=== PATIENT | male | born 1985 | race Caucasian/White ===

== ENCOUNTER 2024-06-12 16:30 | Emergency (ER) | payer SELFPAY ==
[2024-06-12 16:31] VITALS: BP 126/91; PULSE 107; RESP 22; TEMP 36.9; O2SAT 96
--- NOTE | 2024-06-12 17:00 | ED_ITS ---
<Statement entered by Dinesh Talavera MD - 06/12/24 22:56> I was consulted by the HARJINDER, and we discussed the complexity of the problems being addressed. I approved the treatment and management plan for this patient's care in the emergency department, thus performing a substantive portion of the medical decision making. Dinesh Talavera MD, EDEN, FACEP Discharge Plan Disposition Patient Disposition: Home, Self-Care Condition: Good Prescriptions Prescriptions: New ondansetron 4 mg tablet,disintegrating 4 mg PO Q8H PRN (Reason: nausea and vomiting) 3 Days Qty: 9 0RF cefdinir 300 mg capsule 300 mg PO Q12H 10 Days Qty: 20 0RF Referrals Follow up/Referrals: Casper Lobo II, MD [Staff Physician] - See instructions Provider,MD Jonathan [Primary Care Provider] - See instructions Clinical Impressions Clinical Impression: Abdominal pain, Acute UTI Instructions Patient Instructions: DI for Urinary Tract Infection (UTI), DI for Acute Abdominal Pain Print Language Print Language: Ivorian Discharge ED Provider: Dinesh Talavera General Adult HPI General Chief complaint: Abdominal Pain Stated complaint: Abdominal Pain Time Seen by Provider: 06/12/24 16:47 Mode of Arrival: Wheelchair Source of Information: Patient Limitations: No Limitations Description of Symptoms (Recalled from ER Triage Doc. by RN): r side pain. x4 days. has worsened today. History of Present Illness HPI narrative: Patient presents complaining of right sided abdominal pain. Initially he reports that the pain has been going on for 4 days however subsequently states that it is actually been present for 4 years. He reports a temperature of 100.1. He reports his urine has been dark. He does report nausea, vomiting, constipation. complaint: abdominal pain Onset (ago): hour(s) Location: abdomen Radiation: non-radiation Severity: moderate Quality: stabbing Consistency: intermittent Relieving factors: none Exacerbating factors: none Associated symptoms: negative fever/chills Related Data Previous Rx's ?Medication ?Instructions ?Recorded cefdinir 300 mg capsule 300 mg PO Q12H 10 days #20 caps 06/12/24 ondansetron 4 mg disintegrating 4 mg PO Q8H PRN nausea and 06/12/24 tablet vomiting 3 days #9 tabs Allergies Allergy/AdvReac Type Severity Reaction Status Date / Time No Known Allergies Allergy Verified 06/12/24 16:44 [facility] Disclaimer: The information contained in this section may have been updated after the patient was seen, as this information can be updated by other users. Social History Smoking Status: Current every day smoker alcohol intake: never current occupational status: other Travel in the last 8 weeks: None ROS Obtained: Yes Systems reviewed as appropriate & no additional complaints except as documented Physical Exam General General appearance: alert and in no apparent distress Head Head exam: atraumatic and normocephalic Eye Eye exam: Present normal appearance and EOMI Chest Chest inspection: Present symmetric chest wall rise Respiratory Respiratory exam: Present normal lung sounds bilaterally; Absent wheezes or stridor Cardiovascular Cardiovascular exam: Present regular rate and normal rhythm; Absent systolic murmur Abdominal Exam Abdominal exam: Present soft; Absent distention, tenderness or guarding Extremities Exam Extremities exam: Present full ROM Neurological Exam Neurological exam: Present alert and oriented X3 Psychiatric Psychiatric exam: Present normal affect and normal mood Skin Skin exam: Present warm, dry and intact Medical Decision Making Medical Records Screening: Per USPSTF and CDC recommendations, given the prevalence of disease in our region, it is our hospital?s policy to screen for HIV and viral Hepatitis for all patients aged 18 and over and those with ongoing risk factors. Jf Inquiry Pt receiving controlled substance: No Vital Signs: 06/12/24 16:31 Temperature 98.4 F Temperature Source Oral Pulse Rate [Right] 107 H Respiratory Rate 22 Blood Pressure [Right Arm] 126/91 H Blood Pressure Mean [Right Arm] 102 02 Sat by Pulse Oximetry 96 Oxygen Delivery Method Room Air Lab Data Lab Results 06/12/24 16:48: WBC 15.0 H, RBC 4.42 L, Hgb 13.7 L, Hct 39.6 L, MCV 89.6, MCH 31.0, MCHC 34.6, RDW 12.2, Plt Count 200, MPV 10.7 H, Neut % (Auto) 84.7 H, L ymph % (Auto) 8.3 L, [place] % (Auto) 6.3, Eos % (Auto) 0.0 L, Baso % (Auto) 0.3, N eut # (Auto) 12.7 H, Lymph # (Auto) 1.3, [place] # (Auto) 1.0, Eos # (Auto) 0.0, Baso # (Auto) 0.0, Total Counted 100, Neutrophils % (Manual) 87 H, Lymphocytes % (Manual) 7 L, Monocytes % (Manual) 6, Platelet Estimate Normal, RBC Morphology Normal, Sodium 133 L, Potassium 4.1, Chloride 94 L, Carbon Dioxide 21 L, Anion Gap 22.1 H, BUN 19, Creatinine 1.30 H, Estimated Creat Clear 73, Estimated GFR 62, Est GFR ( Amer) 75, Glucose 103 H, Lactate 4.1 H, Calcium 9.7, Total Bilirubin 2.0 H, AST 32, ALT 33, Alkaline Phosphatase 74, Total Creatine Kinase 121, Total Protein 7.6, Albumin 5.0, Globulin 2.6, Albumin/Globulin Ratio 1.9 H, Lipase 41 06/12/24 16:55: Urine Color Yellow, Urine Appearance Clear, Urine pH 6.0, Ur Specific [place] >= 1.030, Urine Protein 1+ A, Urine Glucose (UA) Negative, Urine Ketones 2+, Urine Blood 1+ A, Urine Nitrate Negative, Urine Bilirubin 2+ A , Urine Urobilinogen 1.0, Ur Leukocyte Esterase 1+ A, Urine RBC Occasional, Urine WBC 5-10, Ur Squamous Epith Cells Occasional, Urine Bacteria Trace 06/12/24 16:48 06/12/24 16:48 Orders (Tests/Meds): ED MEDICATIONS Generic Name Dose Route Start Last Admin Trade Name Freq PRN Reason Stop Dose Admin Sodium Chloride 10 ml 06/12/24 17:06 Sodium Chloride 0.9% 10ml Flush Syringe IV 07/12/24 17:05 NEEDED PRN Maintain IV Site Sodium Chloride 10 ml 06/12/24 17:18 06/12/24 17:19 Sodium Chloride 0.9% 10ml Syr (Rad Only) IV 07/12/24 17:17 10 ml NEEDED PRN Administration Maintain IV Site Discontinued Medications Generic Name Dose Route Start Last Admin Trade Name Freq PRN Reason Stop Dose Admin Sodium Chloride 500 mls @ 999 mls/hr 06/12/24 17:06 06/12/24 17:16 Sod Chlor 0.9% 1000ml Bag IV 06/12/24 17:36 999 mls/hr .Q31M ONE Administration Iopamidol 75 ml 06/12/24 17:14 06/12/24 17:15 Iopamidol-370 (76%);100ml Bottle IV 06/12/24 17:15 75 ml ONCE ONE Administration Iopamidol 75 ml 06/12/24 17:18 06/12/24 17:19 Iopamidol-370 (76%);100ml Bottle IV 06/12/24 17:19 75 ml ONCE ONE Administration Morphine Sulfate 4 mg 06/12/24 17:25 06/12/24 17:30 Morphine 4mg/Ml Syringe IV 06/12/24 17:26 4 mg ONCE ONE Administration Ondansetron HCl 4 mg 06/12/24 17:06 06/12/24 17:16 Ondansetron 4mg/2ml Vial IV 06/12/24 17:07 4 mg ONCE ONE Administration Sodium Chloride 10 ml 06/12/24 17:14 06/12/24 17:15 Sodium Chloride 0.9% 10ml Syr (Rad Only) IV 06/12/24 17:15 10 ml ONCE ONE Administration ORDERS Category Date Time Status CT abdomen pelvis w con Stat Cat Scan 06/12/24 17:06 Completed CK [Creatine Kinase] Stat Lab 06/12/24 16:48 Completed Complete Blood Count Auto Diff Stat Lab 06/12/24 16:48 Completed Comprehensive Metabolic Panel Stat Lab 06/12/24 16:48 Completed Lactic Acid Stat Lab 06/12/24 16:48 Completed Lipase Stat Lab 06/12/24 16:48 Completed Urinalysis and Microscopic Stat Lab 06/12/24 16:55 Completed Urine Culture Stat Micro 06/12/24 16:55 Received Medical Decision Narrative: In summary patient is a 38-year-old jessica who presents the emergency department for evaluation of abdominal pain. Patient is slightly tachycardic upon arrival, afebrile. Right upper quadrant abdominal tenderness. Differential diagnosis includes gallbladder disease, pancreatitis, appendicitis. Initial workup will be conducted with hematologic labs CT abdomen and pelvis. Initial inventions include , IV fluids, Zofran. Initial workup reviewed by me leukocytosis, anion gap elevated, bilirubin 2, UTI. Upon repeat evaluation patient appears much more calm. Given this patient given follow-up with gastroenterology for chronic pain. Critical Care Critical Care Time Critical Care Time: No
--- NOTE | 2024-06-12 17:06 | CT_ITS ---
PROCEDURE INFORMATION: Exam: CT Abdomen And Pelvis With Contrast Exam date and time: 06/12/2024 5:14 PM Age: 38 years old Clinical indication: Abdominal pain; Additional info: Right sided abd pain TECHNIQUE: Imaging protocol: Computed tomography of the abdomen and pelvis with contrast. Radiation optimization: All CT scans at this facility use at least one of these dose optimization techniques: automated exposure control; mA and/or kV adjustment per patient size (includes targeted exams where dose is matched to clinical indication); or iterative reconstruction. Contrast material: ISOVUE; Contrast volume: 75 ml; Contrast route: IV; COMPARISON: No relevant prior studies available. FINDINGS: Liver: Moderate hypoattenuation of the liver adjacent to the falciform ligament compatible with fatty replacement. Gallbladder and biliary ducts: Normal. No calcified stones. No ductal dilation. Pancreas: Normal. No ductal dilation. Spleen: Normal. No splenomegaly. Adrenal glands: Normal. No mass. Kidneys and ureters: Left renal Bosniak 1 cystic lesion that is homogeneous and fluid density (-9-20 HU), no septations or calcifications, having mendiola smooth and thin. Measurement is 0.7 cm. No follow-up recommended. Stomach and bowel: Unremarkable. No obstruction. No mucosal thickening. Appendix: No evidence of appendicitis. Intraperitoneal space: Unremarkable. No free air. No significant fluid collection. Vasculature: Unremarkable. No abdominal aortic aneurysm. Lymph nodes: Unremarkable. No enlarged lymph nodes. Urinary bladder: Bladder is decompressed limiting its evaluation. Reproductive: Unremarkable as visualized. Bones/joints: Unremarkable. No acute fracture. Soft tissues: Normal. IMPRESSION: No acute findings. COMMENTS: Consistent with the [employer]'s Incidental Findings Committee white paper (J Am Bere Radiol 2018): Any incidental renal lesion less than 1 cm or classified as too small to characterize, or any incidental cystic renal lesion characterized as simple-appearing, is likely benign. No follow-up imaging is recommended for these lesions per consensus recommendations based on imaging criteria.
[2024-06-12 17:14] LABS: Microscopic, Urine URINE MICROSCOPIC (MICROSCOPIC)
[2024-06-12] MEDS: SODIUM CHLORIDE 0.9% 10ML SYR (RAD ONLY) 10 ML IV ×2 (17:15→17:19)
[2024-06-12] MEDS: IOPAMIDOL-370 (76%);100ML BOTTLE 75 ML IV ×2 (17:15→17:19)
[2024-06-12 17:16] LABS: Basophils % 0.3 % (0.1-2.0); Hematocrit 39.6 % (42.0-52.0); Hemoglobin 13.7 g/dL (14.1-18.0); Lymphocytes # 1.3 K/mm3 (0.7-4.5); Lymphocytes % 8.3 % (10-50); Mean Corpuscular HGB Conc 34.6 g/dL (31.8-35.4); Mean Corpuscular Volume 89.6 fl (80-94); Mean Platelet Volume 10.7 fl (7.4-10.4); Monocytes % 6.3 % (1.7-9.3); Neutrophils # 12.7 K/mm3 (1.8-7.8); Neutrophils % 84.7 % (37.0-80.0); Platelet Count 200 K/mm3 (142-424); Red Blood Count 4.42 M/mm3 (4.60-6.20); Red Cell Distribution Width 12.2 % (11.5-17.5)
[2024-06-12] MEDS: 0.9 % SODIUM CHLORIDE 1000ML 500 ML 999 ML IV (17:16)
[2024-06-12] MEDS: ONDANSETRON 4MG/2ML VIAL 4 MG IV (17:16)
[2024-06-12 17:17] LABS: Appearance,Urine CLEAR (Clear); Blood, Urine 1+ (Negative); Color,Urine YELLOW (Yellow); Glucose,Urine (UA) Negative (Negative); Ketones,Urine 2+ (Negative); Leukocyte Esterase,Urine 1+ (Negative); Nitrate,Urine Negative (Negative); Protein,Urine 1+ (Negative); Specific Gravity, Urine >= 1.030 (1.005-1.030)
[2024-06-12 17:20] LABS: MANUAL DIFFERENTIAL MANUAL DIFFERENTIAL (MANUAL DIFF)
--- NOTE | 2024-06-12 17:20 | PC.NURSE ---
pt returned from radiology
[2024-06-12 17:22] LABS: Alanine Aminotransferase 33 U/L (12-78); Albumin/Globulin Ratio 1.9 (1.1-1.8); Alkaline Phosphatase 74 U/L (38-126); Aspartate Amino Transferase 32 U/L (17-59); Blood Urea Nitrogen 19 mg/dl (9-20); Calcium 9.7 mg/dl (8.4-10.2); Carbon Dioxide 21 mmol/L (22.0-30.0); Chloride 94 mmol/L (98-107); Creatinine Clearance Estimated 73 mL/min (50-200); Estimated Glomerular Filt Rate 62 ml/min (>60); GFR (African American) 75 ML/MIN (>60); Globulin 2.6 g/dL (1.3-3.2); Glucose 103 mg/dl (74-100); Lipase 41 U/L (23-300); Sodium 133 mmol/L (136-145); Total Protein,Serum 7.6 g/dl (6.3-8.2)
[2024-06-12] MEDS: MORPHINE 4MG/ML SYRINGE 4 MG IV (17:30)
[2024-06-12 17:38] LABS: Lactic Acid 4.1 mmol/L (0.7-2.1)
[2024-06-12 17:47] LABS: Lymphocytes % 7 % (10-50); Monocytes % 6 % (2-9); Neutrophils % 87 % (42-76); Total Cells Counted 100
[2024-06-12 17:49] LABS: Platelet Estimate Normal; RBC Morphology Normal
--- NOTE | 2024-06-12 17:52 | PC.NURSE ---
PT TOOK OF BP CUP AND OXYGEN READER
[2024-06-12 18:10] LABS: Anion Gap 22.1 mEq/L (5-15); Potassium 4.1 mmoL/L (3.5-5.1)
[2024-06-12 18:13] LABS: Bilirubin,Urine 2+ (Negative)
[2024-06-12 18:18] LABS: Bacteria,Urine Trace /lpf; RBC,Urine Occasional #/hpf (0-3); Squamous Epithelial Cell,Urine Occasional #/hpf (0-5)
[2024-06-12 18:35] LABS: Creatine Kinase 121 U/L (55-170)
[2024-06-12 19:01] VITALS: BP 126/91; PULSE 107; RESP 20; TEMP 36.9
[2024-06-12 21:13] LABS: Reflex Lactic Add Lactic Reflex
--- NOTE | 2024-06-15 08:12 | PC.NURSE ---
urine culture discussed with , pt dc with appropriate antibiotics, no new orders
== END 2024-06-12 19:02 | disposition home or self-care (01) ==
PROVIDERS: Physician Assistant; Emergency Provider Student in an Organized Health Care Education/Training Program
DX: N39.0 Urinary tract infection, site not specified (principal); R10.11 Right upper quadrant pain; R50.9 Fever, unspecified; R11.2 Nausea with vomiting, unspecified; K59.00 Constipation, unspecified
CPT/HCPCS: 74177; 80053; 81001; 82550; 83605; 83690; 85007; 85025; 85027; 87086; 87088; 87186; 96361; 96374; 96375; 99285; J2270; J2405; J7030; Q9967

== ENCOUNTER 2024-10-24 16:26 | Emergency (ER) | payer MEDICARE, SELFPAY ==
[2024-10-24 16:33] VITALS: BP 125/78; PULSE 73; RESP 18; TEMP 36.6; O2SAT 97; BMI 23.1
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
[2024-10-24] MEDS: ACETAMINOPHEN 500MG TAB 1000 MG PO (17:17)
[2024-10-24 19:35] VITALS: BP 128/74; PULSE 78; RESP 16; TEMP 36.7; O2SAT 100
== END 2024-10-24 19:37 | disposition home or self-care (01) ==
PROVIDERS: Emergency Provider Emergency Medicine
DX: S09.93XA Unspecified injury of face, initial encounter (principal); S90.32XA Contusion of left foot, initial encounter; R91.1 Solitary pulmonary nodule; I25.10 Atherosclerotic heart disease of native coronary artery without angina pectoris; F17.210 Nicotine dependence, cigarettes, uncomplicated; W22.8XXA Striking against or struck by other objects, initial encounter; Y93.16 Activity, rowing, canoeing, kayaking, rafting and tubing
CPT/HCPCS: 70450; 70486; 72125; 72128; 73562; 73590; 73610; 73630; 99285

== ENCOUNTER 2024-12-13 12:12 | Emergency (ER) | payer SELFPAY ==
[2024-12-13 12:23] VITALS: BP 135/95; PULSE 69; RESP 16; TEMP 36.9; O2SAT 100; BMI 16.2
--- OUTSIDE RECORDS SUMMARY | 2024-12-13 12:28 | XMS_ITS | Clinical Summary ---
Author Organization [facility] Address [address] [place] [address] Care Team Providers Care Windows And Doors Installer Name Role Phone Morales Laureano MD Primary Care Provider [phone] Allergies Active Allergy Reactions Criticality Noted Date Comments Tramadol Itching High 06/16/2024 Medications escitalopram (LEXAPRO) 10 MG tablet Take 1 tablet by mouth Daily for 60 days. 60 tablet 5 Active ondansetron ODT (ZOFRAN-ODT) [address] 1 tablet on the tongue Every 8 (Eight) Hours As Needed for Nausea or Vomiting. 30 tablet 5 Active naloxone (NARCAN) 4 MG/0.1ML nasal spray Call 911. Don't prime. [place] in 1 nostril for overdose. Repeat in 2-3 minutes in other nostril if no or minimal breathing/res ponsiveness. 2 each 5 Active albuterol sulfate HFA 108 (90 Base) MCG/ACT inhalerIndications :Mild intermittent intrinsic asthma without status asthmaticus without complication Inhale 2 puffs Every 4 (Four) Hours As Needed for Shortness of Air or Wheezing. 18 g 2 5 Active thiamine (VITAMIN B1) 100 MG tabletIndications: Vitamin B1 deficiency Take 1 tablet by mouth Daily. 90 tablet 1 5 Active vitamin B-12 (CYANOCOBALAMIN) 1000 MCG tabletIndications: Vitamin B 12 deficiency Take 2 tablets by mouth Daily. 180 tablet 1 5 Active ARIPiprazole (ABILIFY) 5 MG tabletIndications: Mood disorder Take 1 tablet by mouth Daily. 30 tablet 5 Active QUEtiapine (SEROquel) 25 MG tabletIndications: Insomnia due to other mental disorder Take 1 tablet by mouth Every Night. 30 tablet 5 Active levETIRAcetam (Keppra) 500 MG tabletIndications: Seizure-like activity Take 1 tablet by mouth 2 (Two) Times a Day. 60 tablet 1 5 Active Active Problems Problem Noted Date Diagnosed Date Symptom of blood in vomit 07/28/2024 Assessment & Plan (07/28/2024 9:42 AM EST): Onset of vomiting 2 days ago, multiple times since this morning woke up without having 8 or drink anything red-colored, he threw up he had red color to the vomit which she thinks look like blood. On a telemedicine visit is a difficult to tell definitively, but we would have to assume that this is blood. I discussed that yes it is possible this could be more just from irritation from vomiting but this is something that should not be ignored and I would recommend being more formally evaluated through the ER setting. He is somewhat hesitant but is agreeable to that consideration. Viral syndrome 07/28/2024 Assessment & Plan (07/28/2024 9:44 AM EST): Patient, No Predominant Flulike Illness Symptoms, outside 2-Day Window to Consider Tamiflu, As Such I Discussed Not Much Benefit of Being Evaluated in the Clinic Setting in That Regard, but There Is Concerns That This Morning He Woke up with What Appears to Be Some Blood Involved in Vomit Episode without Any Food Intake That Could Have Been Red in the Last 8 to 12 Hours. He Has Some Associated Discomfort and What Looks like the Esophageal Area but Is Not Severe, Nonetheless As per Assessment Plan for Symptom of Blood in Vomit I recommend he be evaluated in the ER for cautionary reasons. Otherwise he already has ondansetron to use as needed from previous prescription, she has a couple times with benefit. Recommend gradual transition to solid food intake as he tolerates but push fluids at small amounts initially, more frequently, then titrate up as tolerated. Advise any worsening Mood disorder 06/28/2024 Generalized anxiety disorder 06/28/2024 Insomnia due to other mental disorder 06/28/2024 Seizure-like activity 06/22/2024 Assessment & Plan (07/28/2024 9:41 AM EST): Patient with ill-defined potential seizure-like activity when he was evaluated with admission 06/14/2024. Ultimately he had an EEG done in the hospital which was negative, negative MRI of the head and MRI of the C-spine. Nonetheless neurology evaluated and felt the symptoms were suspicious enough that it would be prudent to initiate Keppra 500 mg twice daily and he has been taking and tolerating. He has follow-up appointment with neurology on 09/22/2024 through [facility], but as he is out of the Keppra I refilled that as of 07/26/2024 and I recommend him to continue that until the appointment. Reinforced importance of keeping that appointment, advise any concerns. Assessment & Plan (06/22/2024 1:39 PM EST): Patient with described ill-defined potential seizure-like activity when he was evaluated with admission 06/14/2024. Ultimately he had an EEG done in the hospital which was negative, negative MRI of the head and MRI of the C-spine. Nonetheless neurology evaluated and felt the symptoms were suspicious enough that it would be prudent to initiate Keppra 5 mg twice daily and he has been taking and tolerating. Of note, he has not had any of the unusual episodes since hospitalization. He has follow-up appoint with neurology on 09/22/2024 through [facility]. Reinforced importance of keeping that appointment, advise any concerns. Anxiety and depression 06/22/2024 Assessment & Plan (06/22/2024 1:37 PM EST): Patient appears to have had some longstanding anxiety more so than depressive symptoms for many years, for which she had essentially self medicated with THC/marijuana. He has abstained now since his recent hospitalization from 06/14/2024. It is thought that the THC could have been associated pattern of cyclical vomiting syndrome although he did not have exactly that presentation. Nonetheless he has been initiated on Lexapro 10 mg tablet daily, too soon to see benefit. He was also given diazepam 5 mg 3 times daily as needed, #20, although I discussed that this is not a long-term medication more as a transitional medicine that would not be refilled long-term. With his significant longstanding difficulties including notable anxiety, and comorbid health concerns I think it is most prudent to evaluate through psychiatry. I will add buspirone 7.5 mg twice daily which he thought he may have used in his adolescent years when he had the previous diagnosis of ADHD among other things. He does not remember how well it worked but I think would be reasonable to add on SSRI therapy as they can commonly work together and this will benefit anxiety specifically. Continue management through psychiatry referral, appreciate that input. Gastroesophageal reflux disease without esophagi tis 06/22/2024 Assessment & Plan (06/22/2024 1:34 PM EST): After extensive investigations while hospitalized at [facility] from 06/14/2024 - 06/17/2024, ultimately follow-up CT of abdomen was felt to be reassuring and concern of possible previous intussusception was not felt to be the case. He does appear to have some underlying component of GERD like symptoms and as such he had been placed on pantoprazole 40 mg daily which she is taking. He does feel he is maybe doing a little better in that regard but still has some vague right greater than left sided abdominal complaints, but not any change. No vomiting or diarrhea. Colonoscopy 06/16/2024 with some diffuse mildly erythematous mucosa in the distal rectum, internal hemorrhoids but otherwise negative. Recommendation repeat colonoscopy at age 45 for polyp screening. EGD 06/16/2024 with normal results. Follow-up biopsies. Thus far negative, reinforced importance of keeping follow-up with gastroenterology on 07/18/2024. Vitamin B 12 deficiency 06/22/2024 Assessment & Plan (06/22/2024 1:40 PM EST): While hospitalized found to have borderline B12 level at 212 he has been prepped initiated on vitamin B12 2000 units daily, after having administration in the hospital as well. I will recheck this level when he follows up in 3 months with screening blood work. With range 211-946. Vitamin B1 deficiency 06/22/2024 Assessment & Plan (06/22/2024 1:41 PM EST): Very low normal vitamin B1 level 69.3 with range 66.5-200. Initiated in hospital on vitamin B1 100 mg daily replacement. He is tolerating well and this could hopefully give him some benefit symptomatic benefit. Plan to recheck level when he follows up in 3 months time. Intrinsic asthma without sta tus asthmaticus without complication 06/22/2024 Assessment & Plan (06/22/2024 1:38 PM EST): Unrelated to his recent hospitalization but he describes history of some tendency for asthma refill of tightness and he has not had inhaler for many years. he did smoke marijuana of some regularity but not cigarettes, but nonetheless having cessation of marijuana smoking should benefit him. Initially albuterol inhaler 2 puffs every 4-6 hours as needed. Caution viruses, allergies, cold exertion as triggers. Reassess how he is doing at follow-up visit. Poor dentition 06/22/2024 Assessment & Plan (06/22/2024 1:42 PM EST): Patient notably poor dentition with multiple missing teeth, and significant dental erosion. He now has insurance I reinforced importance of setting up a dental appointment to improve his dental health care. He will do so. Altered mental status 06/14/2024 Assessment & Plan (06/22/2024 1:41 PM EST): When presented with hospitalization 06/14/2024 some altered mental status type symptoms which were somewhat ill-defined, with extensive evaluation including reassuring MRI of the head, MRI C-spine, normal EKG, normal cardiac evaluation. In retrospect thought to be potentially psychogenic confusion pattern related to his significant anxiety, and he is feeling better in that regard. We will continue to monitor for any further concerns. Abdominal pain 06/14/2024 N&V (nausea and vomiting) 06/14/2024 Shoulder pain 06/14/2024 Paresthesias 06/14/2024 Weight loss 06/14/[address] of the abdomen 06/14/2024 Family History Medical History Relation Name Comments Dementia Mother Relation Name Status Comments Mother Social History Tobacco Use Types Packs/Day Years Used Date Smoking Tobacco: Never Smokeless Tobacco: Current Chew Tobacco Cessation:Ready to Q uit: Not Asked; Counseling Given: Not Answered Alcohol Use Standard Drinks/Week Comments Not Currently 0 (1 standard drink = 0.6 oz pur e alcohol) AUDIT-C Answer Date Recorded Q1: How often do you have a drink containing alcohol? Never 06/15/2024 Q2: How many drinks containi ng alcohol do you have on a typical day when you are drinking? Patient does not drink Q3: How often do you have si x or more drinks on one occasion? Never 06/15/2024 Abuse Screen Answer Date Recorded Feels Unsafe at Home or Work/School no 06/15/2024 Feels Threatened by Someone no 05/26 Does Anyone Try to Keep You From Having Contact with Others or Doing Things Outside Your Home? no 06/15/2024 Physical Signs of Abuse Present no 06/15/2024 Housing Stability Answer Date Recorded Current Living Arrangements home 05/26 Potentially Unsafe Housing Conditions Not on nancy e 06/15/2024 Disabilities Answer Date Recorded Difficulty Concentrating, Remembering or Making Decisions no 06/15/2024 Difficulty Managing Errands Independently no 06/15/2024 PHQ-2 Answer Date Recorded Patient Health Questionnaire-2 Score 0 06/22/2024 Sex and Gender Information Value Date Recorded Sex Assigned at Male 07/14/2024 9:34 AM EST Legal Sex Male 4:13 PM EST Gender Identity Not on file Sexual Orientation Straight 07/14/2024 9: 34 AM EST Last Filed Vital Signs Vital Sign Reading Time Taken Comments Blood Pressure 110/82 06/28/2024 1:04 PM EST Pulse 78 06/28/2024 1:04 PM EST Temperature 36.8 C (98.2 F) 06/22/2024 11:12 AM EST Respiratory Rate 18 06/22/2024 11:12 AM EST Oxygen Saturation 99% 06/28/2024 1:04 PM EST Inhaled Oxygen Concentration - - Weight 66.2 kg (146 lb) 06/28/2024 1:04 PM EST Height 182.9 cm (6') 06/28/2024 1:04 PM EST Body Mass Index 19.8 06/28/2024 1:04 PM EST Plan of Treatment Health Maintenance Due Date Last Done Comments Pneumococcal Vaccine 0-49 (1 of 2 - PCV) 2004 TDAP/TD VACCINES (1 - Tdap) 2004 COVID-19 Vaccine ( season) 2024 ANNUAL PHYSICAL 06/21/2024 HEPATITIS C SCREENING 06/21/2024 INFLUENZA VACCINE 02/22/2025 Insurance Advance Directives * CPR (Attempt to Resuscitate) (Latest Code Status on File) Date Activated Date Inactivated Comments 06/14/2024 11:45 PM 06/17/2024 5:06 PM Question Answer Comments Code Status (Patient has no pulse and is not breathing): CPR (Attempt to Resuscitate) Medical Interventions (Patie nt has pulse or is breathing): Full Support Care Teams Windows And Doors Installer Relationship Specialty Start Date End Date Morales Laureano MD [address] [place] [id number] PCP - General Internal Medicine 06/22/24
--- NOTE | 2024-12-13 12:41 | HMH.EDGENADL ---
Discharge Plan Disposition Patient Disposition: Home, Self-Care Prescriptions Prescriptions: New ondansetron 4 mg tablet,disintegrating 4 mg PO Q8H PRN (Reason: nausea and vomiting) 4 Days Qty: 12 0RF No Action ondansetron 4 mg tablet,disintegrating 4 mg PO Q8H PRN (Reason: nausea and vomiting) 3 Days Qty: 9 0RF cefdinir 300 mg capsule 300 mg PO Q12H 10 Days Qty: 20 0RF Referrals Follow up/Referrals: Provider,Referral, MD [Primary Care Provider, Medical] - See instructions Activity Restrictions/Add. Instructions Additional Instructions/Restrictions: If you develop any new or worsening symptoms, or if you become concerned for your health for any reason, return to the emergency department for evaluation Clinical Impressions Clinical Impression: Bruising, Chronic abdominal pain Print Language Print Language: Wolof Discharge ED Provider: Ezra Ryan Adult HPI General Chief complaint: Weakness Stated complaint: Both leg pain, bit by spider L arm/pain, nausea Time Seen by Provider: 12/13/24 12:19 Mode of Arrival: Ambulatory Source of Information: Patient Description of Symptoms (Recalled from ER Triage Doc. by RN): PT presents to the Ed for evaluation of lower extremity pain and weakness. PT stated it started at 0700 on this date. Stated my legs just felt like jello . PT stated he hasnt been eating well. No edema noted to lower extremities, no discoloration noted to lower extremities. Pt stated he has bruises that take a long time to go away. 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 Patient states that he does smoke marijuana but denies any IV drugs. He reports always having abdominal pain but states that he is having nausea and vomiting and is unable to keep anything down other than crackers. His main concern today is bruising on his legs. He states that he has a bruise on his left thigh that has been there for 2 weeks and is just now starting to heal. Still complaining of some right lower leg pain. He also believes he may have been bit by a spider in his right forearm. Denies any diarrhea. Related Data Previous Rx's ?Medication ?Instructions ?Recorded cefdinir 300 mg capsule 300 mg PO Q12H 10 days #20 caps 06/12/24 ondansetron 4 mg disintegrating 4 mg PO Q8H PRN nausea and 06/12/24 tablet vomiting 3 days #9 tabs ondansetron 4 mg disintegrating 4 mg PO Q8H PRN nausea and 12/13/24 tablet vomiting 4 days #12 tabs Allergies Allergy/AdvReac Type Severity Reaction Status Date / Time tramadol Allergy Mild Rash Verified 10/24/24 16:41 [facility] Disclaimer: The information contained in this section may have been updated after the patient was seen, as this information can be updated by other users. Social History (Updated 06/12/24 @ 18:59 by MELISSA Zheng) Smoking Status: Never smoker alcohol intake: never current occupational status: other Travel in the last 8 weeks?: None Have you lived/traveled outside US in past 30 days?: No Contact w/someone who lives/traveled outside US past 30 days?: No Exposure to someone with infectious disease in past 14 days?: No Do you have a fever (greater than 100.4 F or 38 C)?: No Have you tested positive for COVID-19?: No Exposed to someone with COVID-19 in past 14 days?: No Do you have a sore throat?: No Do you have a cough?: No Do you have any weakness?: No Do you have any diarrhea?: No Are you experiencing any unusual bleeding?: No Do you have any muscle aches/pain?: No Do you have any abdominal pain?: No Are you experiencing loss of taste or smell?: No ROS Obtained: Yes Systems reviewed as appropriate & no additional complaints except as documented Physical Exam General General appearance: alert and in no apparent distress Head Head exam: atraumatic Eye Eye exam: Present normal appearance ENT ENT exam: Present normal external ear exam Neck Neck exam: Present full ROM Chest Chest inspection: Present symmetric chest wall rise Respiratory Respiratory exam: Present normal lung sounds bilaterally; Absent respiratory distress, wheezes or stridor Cardiovascular Cardiovascular exam: Present regular rate and normal rhythm Abdominal Exam Abdominal exam: Present soft, tenderness (generalized) and guarding exam: Present deferred Extremities Exam Extremities exam: Present normal inspection Back Exam Back exam: Present normal inspection Neurological Exam Neurological exam: Present alert and oriented X3 Psychiatric Psychiatric exam: Present normal affect Skin Skin exam: Present warm, dry and other (Small area of bruising to her left thigh that is yellow and appears old. Small scab over right forearm) Medical Decision Making Medical Records Screening: Per USPSTF and CDC recommendations, given the prevalence of disease in our region, it is our hospital?s policy to screen for HIV and viral Hepatitis for all patients aged 18 and over and those with ongoing risk factors. Jf Inquiry Pt receiving controlled substance: No Vital Signs: 12/13/24 12:23 Temperature 98.4 F Temperature Source Oral Pulse Rate [Right] 69 Respiratory Rate 16 Blood Pressure [Right Arm] 135/95 H Blood Pressure Mean [Right Arm] 108 02 Sat by Pulse Oximetry 100 Oxygen Delivery Method Room Air Lab Data Lab Results 12/13/24 12:42: WBC 7.2, RBC 4.44 L, Hgb 14.0 L, Hct 40.2 L, MCV 90.5, MCH 31.5 H, MCHC 34.8, RDW 12.0, Plt Count 192, MPV 10.7 H, Neut % (Auto) 77.3, Lymph % (Auto) 16.1, [place] % (Auto) 5.5, Eos % (Auto) 0.3, Baso % (Auto) 0.4, Neut # (Auto) 5.6, Lymph # (Auto) 1.2, [place] # (Auto) 0.4, Eos # (Auto) 0.0, Baso # (Auto) 0.0, PT 11.0, INR 0.99, APTT 25.7, Sodium 134 L, Potassium 4.6, Chloride 99, Carbon Dioxide 31 H, Anion Gap 8.6, BUN 12, Creatinine 1.00, Estimated Creat Clear 76, Estimated GFR 83, Est GFR ( Amer) 101, Glucose 111 H, Calcium 9.7, Total Bilirubin 1.2, AST 25, ALT 15, Alkaline Phosphatase 81, Total Protein 7.7, Albumin 4.7, Globulin 3.0, Albumin/Globulin Ratio 1.6, Lipase 55 12/13/24 12:42 12/13/24 12:42 Orders (Tests/Meds): ED MEDICATIONS Discontinued Medications Generic Name Dose Route Start Last Admin Trade Name Freq PRN Reason Stop Dose Admin Ondansetron HCl 4 mg 12/13/24 12:45 12/13/24 12:59 Ondansetron 4mg/2ml Vial IV 12/13/24 12:46 4 mg ONCE ONE Administration ORDERS Category Date Time Status CBC w/Auto Diff [Complete Blood Count Auto Diff] Stat Lab 12/13/24 12:42 Completed CMP [Comprehensive Metabolic Panel] Stat Lab 12/13/24 12:42 Completed HIV Combo Stat Lab 12/13/24 12:42 Received Hepatitis C Ab Qual. W/ RFX Stat Lab 12/13/24 12:42 Received Lipase Stat Lab 12/13/24 12:42 Completed PT INR [Prothrombin Time INR] Stat Lab 12/13/24 12:42 Completed PTT [Activated Partial Thrombo Time] Stat Lab 12/13/24 12:42 Completed Medical Decision Narrative: Edwin Farias is a 39-year-old male with reported history of borderline personality disorder supposed to be taking Keppra who presents to the emergency department for complaints of easy bruising and chronic abdominal pain. Patient states that he does smoke marijuana but denies any IV drugs. He reports always having abdominal pain but states that he is having nausea and vomiting and is unable to keep anything down other than crackers. His main concern today is bruising on his legs. He states that he has a bruise on his left thigh that has been there for 2 weeks and is just now starting to heal. Still complaining of some right lower leg pain. He also believes he may have been bit by a spider in his right forearm. Denies any diarrhea. On arrival, patient is mildly hypertensive with blood pressure 135/95, heart rate within normal limits, breathing comfortably on room air with oxygen saturation 100% SpO2. Afebrile. Physical exam, as stated above, reveals an anxious appearing male in no acute respiratory distress. Abdomen is diffusely tender without peritonitis. He has bruising to his left anterior thigh that appears roughly 2 weeks old and is yellow. He has a small area of scabbing to the right volar forearm. No other significant findings on exam. Patient denies any IV drug use or alcohol use. Differential diagnosis includes, but is not limited to: Coagulopathy, acute pancreatitis, cannabis hyperemesis syndrome, among others. The most morbid conditions were considered and workup was based on these. There is low concern for any surgical pathology within the abdomen, such as small bowel obstruction, appendicitis patient states that his pain is chronic and not any different than normal. CT imaging the abdomen pelvis with IV contrast was considered, however given the chronic nature of patient's pain, is felt that radiation exposure outweighs potential benefits Workup in the emergency department included: CBC, CMP, lipase, PT/INR, PTT. Patient was treated for milligrams IV Zofran for his nausea. Laboratory studies were unremarkable with normal platelets, no leukocytosis, lipase within normal limits. Coagulation studies unremarkable. Patient notes that he does not have insurance currently and does not have a primary care physician. There are no emergent causes of his symptoms today. Will discharge with prescription for Zofran for his chronic nausea and abdominal pain. Return precautions were given. All questions were answered. He demonstrated understanding and was in agreement this plan. He was then discharged from the emergency department in stable condition Critical Care Critical Care Time Critical Care Time: No
[2024-12-13 12:51] LABS: Hematocrit 40.2 % (42.0-52.0); Hemoglobin 14.0 g/dL (14.1-18.0); Immature Granulocytes % 0.4 %; Mean Corpuscular HGB Conc 34.8 g/dL (31.8-35.4); Mean Corpuscular Hemoglobin 31.5 pg (27.0-31.2); Mean Corpuscular Volume 90.5 fl (80-94); Nucleated Red Blood Cells % 0 %; Platelet Count 192 K/mm3 (142-424); Red Blood Count 4.44 M/mm3 (4.60-6.20); Red Cell Distribution Width-SD 39.9 fL; White Blood Count 7.2 K/mm3 (4.8-10.8)
[2024-12-13 12:57] LABS: Albumin Level 4.7 g/dl (3.5-5.0); Chloride 99 mmol/L (98-107); Potassium 4.6 mmoL/L (3.5-5.1); Sodium 134 mmol/L (136-145)
[2024-12-13] MEDS: ONDANSETRON 4MG/2ML VIAL 4 MG IV (12:59)
[2024-12-13 13:00] LABS: Alanine Aminotransferase 15 U/L (12-78); Albumin/Globulin Ratio 1.6 (1.1-1.8); Alkaline Phosphatase 81 U/L (38-126); Anion Gap 8.6 mEq/L (5-15); Aspartate Amino Transferase 25 U/L (17-59); Bilirubin,Total 1.2 mg/dl (0.2-1.3); Blood Urea Nitrogen 12 mg/dl (9-20); Calcium 9.7 mg/dl (8.4-10.2); Carbon Dioxide 31 mmol/L (22.0-30.0); Creatinine Clearance Estimated 76 mL/min (50-200); Creatinine,Serum 1.00 mg/dl (0.66-1.25); Estimated Glomerular Filt Rate 83 ml/min (>60); GFR (African American) 101 ML/MIN (>60); Globulin 3.0 g/dL (1.3-3.2); Glucose 111 mg/dl (74-100); Lipase 55 U/L (23-300); Total Protein,Serum 7.7 g/dl (6.3-8.2)
[2024-12-13 13:21] LABS: Activated Partial Thrombo Time 25.7 seconds (22.8-30.6); INR 0.99 (0.9-1.1); Prothrombin Time 11.0 seconds (10.1-12.5)
[2024-12-13 13:39] VITALS: BP 134/83; PULSE 65; RESP 16; TEMP 37.1; O2SAT 100
[2024-12-13 14:10] LABS: Hepatitis C Ab Qual. W/ RFX NEGATIVE (Negative)
== END 2024-12-13 13:40 | disposition home or self-care (01) ==
PROVIDERS: Emergency Provider Student in an Organized Health Care Education/Training Program
DX: R10.9 Unspecified abdominal pain (principal); T14.8XXA Other injury of unspecified body region, initial encounter
CPT/HCPCS: 80053; 83690; 85025; 85610; 85730; 86803; 87389; 96374; 99284; J2405

== ENCOUNTER 2025-04-12 11:58 | Emergency (ER) | payer SELFPAY ==
[2025-04-12 12:32] VITALS: BP 120/79; PULSE 59; RESP 18; TEMP 36.9; O2SAT 100; BMI 20.3
--- NOTE | 2025-04-12 12:37 | XR_ITS ---
FINAL REPORT CLINICAL HISTORY: possible dislocated shoulder FINDINGS: Three views of the left shoulder were obtained. There is no prior exam for comparison. There is no fracture or dislocation. The joint space is preserved. Soft tissues are unremarkable. IMPRESSION: No acute osseous abnormality of the left shoulder. Reviewed, Interpreted and Dictated by Gladys Fan MD Transcribed by Danyelle Coats Authenticated and [facility]
--- NOTE | 2025-04-12 12:49 | PC.NURSE ---
venipuncture performed in triage by this RN, as well as a respiratory swab. patient handed a urine specimen cup and send back to the lobby until a treatment room becomes available.
[2025-04-12 12:51] LABS: Coronavirus 19, PCR Not Detected (NotDetected); Influenza A, PCR Not Detected (NotDetected); Influenza B, PCR Not Detected (NotDetected)
[2025-04-12 12:52] LABS: Hematocrit 39.9 % (42.0-52.0); Hemoglobin 13.8 g/dL (14.1-18.0); Immature Granulocytes % 0.4 %; Mean Corpuscular HGB Conc 34.6 g/dL (31.8-35.4); Mean Corpuscular Hemoglobin 31.4 pg (27.0-31.2); Mean Corpuscular Volume 90.9 fl (80-94); Nucleated Red Blood Cells % 0 %; Platelet Count 190 K/mm3 (142-424); Red Blood Count 4.39 M/mm3 (4.60-6.20); Red Cell Distribution Width-SD 40.9 fL; White Blood Count 4.7 K/mm3 (4.8-10.8)
[2025-04-12 13:04] LABS: Alanine Aminotransferase 12 U/L (12-78); Albumin Level 4.7 g/dl (3.5-5.0); Albumin/Globulin Ratio 1.9 (1.1-1.8); Alkaline Phosphatase 68 U/L (38-126); Anion Gap 8.3 mEq/L (5-15); Aspartate Amino Transferase 20 U/L (17-59); Bilirubin,Total 0.7 mg/dl (0.2-1.3); Blood Urea Nitrogen 13 mg/dl (9-20); Calcium 9.3 mg/dl (8.4-10.2); Carbon Dioxide 28 mmol/L (22.0-30.0); Chloride 99 mmol/L (98-107); Creatinine Clearance Estimated 95 mL/min (50-200); Creatinine,Serum 1.00 mg/dl (0.66-1.25); Estimated Glomerular Filt Rate 83 ml/min (>60); GFR (African American) 101 ML/MIN (>60); Globulin 2.5 g/dL (1.3-3.2); Glucose 111 mg/dl (74-100); Lipase 193 U/L (23-300); Potassium 4.3 mmoL/L (3.5-5.1); Sodium 131 mmol/L (136-145); Total Protein,Serum 7.2 g/dl (6.3-8.2)
[2025-04-12 13:09] LABS: Microscopic, Urine URINE MICROSCOPIC (MICROSCOPIC)
[2025-04-12 13:16] LABS: Bilirubin,Urine Negative (Negative); Color,Urine YELLOW (Yellow); Glucose,Urine (UA) Negative (Negative); Ketones,Urine Negative (Negative); Leukocyte Esterase,Urine Negative (Negative); PH,Urine 6.5 (5.0-8.5); Protein,Urine Negative (Negative); Specific Gravity, Urine 1.020 (1.005-1.030); Urobilinogen,Urine 0.2 EU/dl (0.2)
--- OUTSIDE RECORDS SUMMARY | 2025-04-12 13:23 | XMS_ITS | Clinical Summary ---
Author Organization [facility] Address [address] [place] [address] Care Team Providers Care Stick Welder Name Role Phone Morales Laureano MD Primary Care Provider [phone] Allergies Active Allergy Reactions Criticality Noted Date Comments Tramadol Itching High 06/16/2024 Medications * This document contains information received from the source organization and may not represent a complete record from that organization. escitalopram (LEXAPRO) 10 MG tablet Take 1 tablet by mouth Daily for 60 days. 60 tablet 5 Active ondansetron ODT (ZOFRAN-ODT) [address] 1 tablet on the tongue Every 8 (Eight) Hours As Needed for Nausea or Vomiting. 30 tablet 5 Active naloxone (NARCAN) 4 MG/0.1ML nasal spray Call 911. Don't prime. Rozel in 1 nostril for overdose. Repeat in [...] follow-up appointment with neurology on 09/22/2024 through [facility], but as he is out of the [...] follow-up appoint with neurology on 09/22/2024 through [facility]. Reinforced importance of keeping that appointment, advise [...] EST): After extensive investigations while hospitalized at [facility] from 06/14/2024 - 06/17/2024, ultimately follow-up CT [...] 2004 TDAP/TD VACCINES (1 - Tdap) 2004 ANNUAL PHYSICAL 06/21/2024 HEPATITIS C SCREENING 06/21/2024 INFLUENZA VACCINE 12/23/2024 Insurance Advance Directives * CPR (Attempt to Resuscitate) (Latest Code Status on File) Date Activated Date Inactivated Comments 06/14/2024 11:45 PM 06/17/2024 5:06 PM Question Answer Comments Code Status (Patient has no pulse and is not breathing): CPR (Attempt to Resuscitate) Medical Interventions (Patie nt has pulse or is breathing): Full Support Care Teams Stick Welder Relationship Specialty Start Date End Date Morales Laureano MD [address] [place] [address] [place] [id number] PCP - General Internal Medicine 06/22/24
[2025-04-12 14:43] LABS: Bacteria,Urine Trace /lpf; Squamous Epithelial Cell,Urine Occasional #/hpf (0-5)
[2025-04-12] MEDS: ACETAMINOPHEN 500MG TAB 1000 MG PO (14:45)
[2025-04-12] MEDS: IBUPROFEN 800 MG TABLET PO (14:45)
--- NOTE | 2025-04-12 14:47 | PC.NURSE ---
patient brought back into triage and reasessed. nothing has changed since initial assessment. patient medicated per JUL. updated vitals in chart. cate sent back to the lobby at this time.
[2025-04-12 14:48] VITALS: BP 115/70; PULSE 58; RESP 18; TEMP 36.9; O2SAT 100
--- NOTE | 2025-04-12 15:34 | PC.NURSE ---
per Dr Talavera, patient brought back into triage for assessment at this time.
--- NOTE | 2025-04-12 15:39 | PC.NURSE ---
Dr Talavera in triage assessing patient at this time.
--- NOTE | 2025-04-12 15:50 | HMH.EDGENADL ---
Discharge Plan Disposition Patient Disposition: Home, Self-Care Prescriptions Prescriptions: New ondansetron 4 mg tablet,disintegrating 4 mg PO Q6H PRN (Reason: nausea and vomiting) 5 Days Qty: 20 0RF No Action ondansetron 4 mg tablet,disintegrating 4 mg PO Q8H PRN (Reason: nausea and vomiting) 3 Days Qty: 9 0RF cefdinir 300 mg capsule 300 mg PO Q12H 10 Days Qty: 20 0RF ondansetron 4 mg tablet,disintegrating 4 mg PO Q8H PRN (Reason: nausea and vomiting) 4 Days Qty: 12 0RF Referrals Follow up/Referrals: Casper Lobo II, MD [Staff Physician, Gastroenterology] - See instructions Calvin Chamorro DO [Staff Physician, Orthopedics] - See instructions Provider,Jonathan, [Primary Care Provider, Medical] - See instructions Activity Restrictions/Add. Instructions Additional Instructions/Restrictions: No emergent medical condition identified today your shoulder is in anatomic location radiographically. Given the fact that from historical standpoint you have had recurrent shoulder dislocations versus subluxations I recommend you follow-up with Dr. Chamorro for further discussion. Also with regards to your chronic abdominal pain please get your records from [facility] and take to Dr. Lobo for further discussion. Return with any significant or severe worsening of her symptoms. Clinical Impressions Clinical Impression: Dislocation, shoulder, recurrent, Chronic abdominal pain Print Language Print Language: Belgian Discharge ED Provider: Ezra Ryan Adult [facility] General Chief complaint: PAIN Stated complaint: Left shoulder, Right abd pain, nausea Time Seen by Provider: 04/12/25 15:18 Mode of Arrival: Ambulatory Source of Information: Patient Description of Symptoms (Recalled from ER Triage Doc. by RN): patient presents for right abdominal pain as well as left sogulder pain. patients shoulder popped out 2 motnhs ago, he put it back in place , but his ROM is limited. he also endorses n/v/d and took zofran at 9 am. he ratess the pain a 9/10 for his abdominal pain that has bene intermittent for 2 weeks now. History of Present Illness HPI narrative: Patient is a 39-year-old male presents today with 2 complaints. First is his left shoulder pain he states that over the last several years he has had numerous dislocations and it pops in and out all the time and he is here just for chronic discomfort associated with that. Also he has chronic right flank discomfort this been ongoing for 5 years. At 1 point the last few years he was admitted to [facility] with an extensive workup and nothing was found. He is currently without insurance therefore he is not been following up with any physicians but the symptoms have been chronic and stable. 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 Related Data Previous Rx's ?Medication ?Instructions ?Recorded cefdinir 300 mg capsule 300 mg PO Q12H 10 days #20 caps 06/12/24 ondansetron 4 mg disintegrating 4 mg PO Q8H PRN nausea and 06/12/24 tablet vomiting 3 days #9 tabs ondansetron 4 mg disintegrating 4 mg PO Q8H PRN nausea and 12/13/24 tablet vomiting 4 days #12 tabs ondansetron 4 mg disintegrating 4 mg PO Q6H PRN nausea and 04/12/25 tablet vomiting 5 days #20 tabs Allergies Allergy/AdvReac Type Severity Reaction Status Date / Time tramadol Allergy Mild Rash Verified 10/24/24 16:41 [facility] Disclaimer: The information contained in this section may have been updated after the patient was seen, as this information can be updated by other users. Social History (Updated 06/12/24 @ 18:59 by MELISSA Zheng) Smoking Status: Never smoker alcohol intake: never current occupational status: other Travel in the last 8 weeks?: None Have you lived/traveled outside US in past 30 days?: No Contact w/someone who lives/traveled outside US past 30 days?: No Exposure to someone with infectious disease in past 14 days?: No Do you have a fever (greater than 100.4 F or 38 C)?: No Have you tested positive for COVID-19?: No Exposed to someone with COVID-19 in past 14 days?: No Do you have a sore throat?: No Do you have a cough?: No Do you have any weakness?: No Do you have any diarrhea?: No Are you experiencing any unusual bleeding?: No Do you have any muscle aches/pain?: No Do you have any abdominal pain?: No Are you experiencing loss of taste or smell?: No ROS Obtained: Yes All systems reviewed & no additional complaints except as documented Physical Exam General General appearance: alert and in no apparent distress Respiratory Respiratory exam: Present normal lung sounds bilaterally Cardiovascular Cardiovascular exam: Present regular rate Neurological Exam Neurological exam: Present alert and oriented X3 Medical Decision Making Medical Records Screening: Per USPSTF and CDC recommendations, given the prevalence of disease in our region, it is our hospital?s policy to screen for HIV and viral Hepatitis for all patients aged 18 and over and those with ongoing risk factors. Jf Inquiry Pt receiving controlled substance: No Vital Signs: 04/12/25 12:32 04/12/25 14:48 Temperature 98.5 F 98.4 F Temperature Source Oral Oral Pulse Rate 58 L Pulse Rate [Right Radial] 59 L Respiratory Rate 18 18 Blood Pressure 115/70 Blood Pressure [Right Arm] 120/79 Blood Pressure Mean [Right Arm] 92 Blood Pressure Source Automatic Cuff Blood Pressure Source [Right Arm] Automatic Cuff Blood Pressure Position Sitting Blood Pressure Position [Right Arm] Sitting 02 Sat by Pulse Oximetry 100 100 Oxygen Delivery Method Room Air Room Air Lab Data Lab results reviewed: Yes I reviewed the patient's lab results. Lab Results 04/12/25 12:44: WBC 4.7 L, RBC 4.39 L, Hgb 13.8 L, Hct 39.9 L, MCV 90.9, MCH 31.4 H, MCHC 34.6, RDW 12.3, Plt Count 190, MPV 10.4, Neut % (Auto) 60.2, Lymph % (Auto) 25.8, [place] % (Auto) 12.8 H, Eos % (Auto) 0.4, Baso % (Auto) 0.4, Neut # (Auto) 2.8, Lymph # (Auto) 1.2, [place] # (Auto) 0.6, Eos # (Auto) 0.0, Baso # (Auto) 0.0, Sodium 131 L, Potassium 4.3, Chloride 99, Carbon Dioxide 28, Anion Gap 8.3, BUN 13, Creatinine 1.00, Estimated Creat Clear 95, Estimated GFR 83, Est GFR ( Amer) 101, Glucose 111 H, Calcium 9.3, Total Bilirubin 0.7, AST 20, ALT 12, Alkaline Phosphatase 68, Total Protein 7.2, Albumin 4.7, Globulin 2.5, Albumin/Globulin Ratio 1.9 H, Lipase 193, SARS-CoV-2 (PCR) Not detected, Influenza A Untype (PCR) Not detected, Influenza Type B (PCR) Not detected 04/12/25 : Urine Color Yellow, Urine Appearance Clear, Urine pH 6.5, Ur Specific [place] 1.020, Urine Protein Negative, Urine Glucose (UA) Negative, Urine Ketones Negative, Urine Blood Negative, Urine Nitrate Negative, Urine Bilirubin Negative, Urine Urobilinogen 0.2, Ur Leukocyte Esterase Negative, Urine RBC None, Urine WBC 3-5, Ur Squamous Epith Cells Occasional, Urine Bacteria Trace 04/12/25 12:44 04/12/25 12:44 Orders (Tests/Meds): ED MEDICATIONS Discontinued Medications Generic Name Dose Route Start Last Admin Trade Name Chaseq PRN Reason Stop Dose Admin Acetaminophen 1,000 mg 04/12/25 14:43 04/12/25 14:45 Acetaminophen 500mg Tab PO 04/12/25 14:44 1,000 mg ONCE ONE Administration Ibuprofen 800 mg 04/12/25 14:44 04/12/25 14:45 Ibuprofen 800 Mg Tablet PO 04/12/25 14:45 800 mg ONCE ONE Administration ORDERS Category Date Time Status XR shoulder LT min 2V Stat Exams 04/12/25 12:37 Completed Complete Blood Count Auto Diff Stat Lab 04/12/25 12:44 Completed Comprehensive Metabolic Panel Stat Lab 04/12/25 12:44 Completed Lipase Stat Lab 04/12/25 12:44 Completed Rapid PCR Covid and Flu A/B Stat Lab 04/12/25 12:44 Completed Urinalysis and Microscopic Stat Lab 04/12/25 Completed Medical Decision Narrative: X-rays performed Personally interpreted shows normal anatomic location of the left shoulder. From historical standpoint patient seems as if he is having chronic and recurrent subluxations versus dislocations and right now its in anatomic location no further intervention is needed for that standpoint. Definitely has soft tissue abnormalities that would need to be followed up with orthopedic surgeon to have elective repair and he has been given a referral to Dr. Chamorro. Also regarding his chronic abdominal pain no emergent medical condition that is ongoing at this moment as this has been persistent for 5 years and has had extensive workup at [facility] in the past. He is trying to get his insurance and back and has been given a referral to Dr. Lobo for this as well. I have advised that he get his records to take to Dr. Lobo for further discussion. Patient was discharged in a stable condition with his chronic conditions. Critical Care Critical Care Time Critical Care Time: No
[2025-04-12 15:51] VITALS: BP 115/70; BP 132/60; PULSE 58; PULSE 74; RESP 18; RESP 20; TEMP 36.8; TEMP 37; O2SAT 100; O2SAT 98
== END 2025-04-12 15:51 | disposition home or self-care (01) ==
PROVIDERS: Emergency Provider Student in an Organized Health Care Education/Training Program
DX: M24.411 Recurrent dislocation, right shoulder (principal); M25.512 Pain in left shoulder; E87.1 Hypo-osmolality and hyponatremia; R10.A1 Flank pain, right side; G89.29 Other chronic pain
CPT/HCPCS: 73030; 80053; 81001; 83690; 85025; 87636; 99283